=== PATIENT | male | born 2000 | race Hispanic/Latino ===

== ENCOUNTER 2023-07-29 06:04 | Emergency (ER) | payer OTHER, SELFPAY ==
[2023-07-29 06:09] VITALS: BP 158/84; PULSE 108; RESP 18; TEMP 36.9; O2SAT 100; BMI 34.4
--- NOTE | 2023-07-29 06:28 | ED.DENTAL ---
HPI - Dental/Oral General Chief complaint: Dental/Oral Stated complaint: jaw pain and discomfort Time Seen by Provider: 07/29/23 06:17 Source: patient Mode of arrival: Ambulatory History of Present Illness HPI Narrative: Patient healthy 22-year-old male who presents today with right jaw pain and strain. He reports his grandfather just a couple days ago they were very close. Last night he was having an emotional outburst he did not want awake anyone he screamed into a pillow. Afterwards he feels like his jaw might be clicking a little bit more than it was in his kind of sore. He is able to open close easily. No actual injury. He is not sure if his teeth line up her not. He does admit to smoking fair amount of marijuana Related Data Allergies Allergy/AdvReac Type Severity Reaction Status Date / Time No Known Drug Allergies Allergy Verified 07/29/23 06:20 Patient History tobacco type: vaping alcohol intake frequency: a few times a month Substance Use Type: marijuana Exam Initial Vital Signs Initial Vital Signs: Vital Signs Temperature 98.4 F 07/29/23 06:09 Pulse Rate 108 H 07/29/23 06:09 Respiratory Rate 18 07/29/23 06:09 Blood Pressure 158/84 H 07/29/23 06:09 Pulse Oximetry 100 07/29/23 06:09 Oxygen Delivery Method Room Air 07/29/23 06:09 GENERAL: Well-appearing, well-nourished and in no acute distress. JAW: Able to fully open and close mouth. Teeth are aligned able to bite on popsicle stick. There is some clicking when it is open completely. TMJ is aligned bilaterally. CARDIOVASCULAR: peripheral pulses in tact, cap refill <2 sec RESPIRATORY: No respiratory distress, speaks in full sentences without difficulty EXTREMITIES: Normal range of motion, no clubbing or edema. Neurovascularly intact NEUROLOGICAL: Cranial nerves II through XII grossly intact. Normal gait and speech. SKIN: Warm, dry, no petechiae, no rashes or lesions. Course Vital Signs Vital signs: Vital Signs - 8 hr 07/29/23 06:09 Temperature 98.4 F Pulse Rate 108 H Respiratory Rate 18 Blood Pressure 158/84 H Pulse Oximetry 100 Oxygen Delivery Method Room Air MDM - Dental/Oral MDM Narrative Medical decision making narrative: At this time patient complaining of right-sided jaw pain concerned after screaming into a pillow. There is no actual fall or injury. He is able to open his mouth completely able to hydrate and popsicle stick. At this time there is no evidence of a dislocation no history of injury. At this time I see no need for x-ray. Discussed supportive care. Discussed grieving process. Encouraged to talk to others Discharge Plan Departure Patient Disposition: Home Clinical Impression: Jaw pain, non-TMJ Instructions: DI for Jaw Dislocation, Coping with Grief Activity Restrictions/Additional Instructions: *You have been diagnosed with jaw pain *What to do: At this time there is no evidence that you have a dislocated jaw or fracture. I think that he likely straight. I am so sorry to hear about your grandfather. Please talk to her family and friends. No that this process is very long. *Continue to take medications as directed Motrin 600 mg every 6 hours if needed for [id number] pain Tylenol 1000 mg every 6 hours if needed for [id number] pain *Follow up with your primary care provider in 2-3 days or call [phone] *Return to ER if you should have increasing pain inability to close mouth smelling or any new, worsening or concerning symptoms Stand Alone Forms: Patient Portal/API
== END 2023-07-29 06:35 | disposition home or self-care (01) ==
PROVIDERS: Emergency Provider Emergency Medicine
DX: R68.84 Jaw pain (principal)
CPT/HCPCS: 99281; 99282